=== PATIENT | female | born 1955 | race Caucasian/White ===

== ENCOUNTER 2018-05-24 07:46 | Day surgery (SDC) | payer BC ==
[2018-05-24] MEDS ORDERED: METOPROLOL SUCC25 MG PO (08:19)
--- NOTE | 2018-05-24 12:01 | NUR ---
0755: PATIENT ARRIVED TO DAY SURGERY UNIT AMBULATORY. PLACED IN ROOM 12. PATIENT CHANGED IN TO GOWN. 0810: PATIENT VERIFIED BY NAME AND . VERIFIED ALLERGIES AND PROCEDURE WITH PATIENT. VS CHECKED. 0915: PROCEDURE COMPLETE. VS CHECKED. PATIENT STATES SHE IS FEELING WELL. BANDAID ON RIGHT ANTERIOR NECK CDI. PATIENT DISCHARGED HOME AMBULATORY.
--- NOTE | 2018-05-25 11:12 | OR ---
[facility] [address], [place] [address] Signed DATE OF OPERATION: 05/24/2018 SURGEON: Amanda Barakat MD PREOPERATIVE DIAGNOSIS: Right thyroid nodule x2 and isthmus nodule x1. POSTOPERATIVE [id number]: Right thyroid nodule x2 and isthmus nodule x1. PROCEDURE: 1. Ultrasound of neck. 2. Ultrasound guided fine-needle aspiration biopsy x3. ANESTHESIA: Local 1% lidocaine 2 mL. INDICATION: This 62-year-old white woman is a patient of Dr. Dustin Painting. She underwent thyroid ultrasound in 2002, at which time nodules were noted, but there was no followup since that time. She has had no symptoms related to her thyroid. Evaluation by Dr. Painting, her new primary provider noted the lack of followup regarding her thyroid nodules and she underwent a thyroid ultrasound on April 18, 2018. This showed enlargement of the nodules and more nodules than previously. Currently, a right medial lobe 23 mm nodule was noted and an 18 mm lateral right thyroid lobe nodule was noted. A 12 mm nodule is noted at the isthmus and a small 4 mm superior pole left-sided nodule. She has no symptoms of hypo or hyperthyroidism. She has no exposure to radiation therapy in the past. No family history of thyroid cancer, though a family member did have an enlarged thyroid for which thyroidectomy was undertaken. She says. I have recommended an ultrasound-guided fine-needle aspiration biopsy of the thyroid nodules that are greater than a centimeter in size. The risks of bleeding, infection, and other unforeseen complications including suboptimal sampling was all reviewed with the patient. She understands and wished to proceed. FINDINGS: Ultrasonographic evaluation confirmed the thyroid nodules on the right side as well as the isthmus nodule. Direct visualization with aspiration was undertaken of the three nodules. Electronically Signed By: AMANDA BARAKAT MD 05/25/18 1112 PATIENT NAME: BAN VERAS OPERATIVE REPORT DATE OF : 59 REPORT #: [id number] PHYSICIAN: AMANDA BARAKAT MD PCP: DUSTIN PAINTING MD REPORT IS CONFIDENTIAL AND NOT TO BE RELEASED WITHOUT AUTHORIZATION [facility] [address], [place] [address] Signed DESCRIPTION OF PROCEDURE: The patient was in the day surgery procedure room and placed in a supine position with neck extension using pillows for support. Interrogation of the neck was undertaken with SonoSite linear probe confirming the anatomy as expected. The right side showed a rather large medial nodule and a smaller lateral nodule and an isthmus nodule, it appeared to have some calcifications. The left lobe was normal. I did not visualize the upper pole small nodule. The neck was prepared with a chlorhexidine solution and sterile technique, then employed with the ultrasound probe in a sterile cover. Re-localization of the offending right-sided nodules was noted and a small amount of 1% lidocaine was injected over the midportion of the probe itself. Under direct visualization using a 22-gauge needle with a control syringe interrogation of the largest nodule was undertaken with multiple passes through it. Photographs were taken. The material was offloaded into appropriate solution. Using a separate needle and syringe the isthmus nodule was then biopsied at this time using a lateral approach, so as to assure contact with the lesion. This was offloaded and then additional inspection of the right lobe showing the more lateral nodule was then undertaken and biopsies taken of that directly as well. In total, three nodules were aspirated. Re-examination showed no sign of bleeding, hematoma, or other problem. She tolerated the procedure well. A Band-Aid was applied. Amanda Barakat MD /KATARZYNAL /[id number] cc: Dustin Painting MD Copies: ~ Electronically Signed By: AMANDA BARAKAT MD 05/25/18 1112 PATIENT NAME: BAN VERAS OPERATIVE REPORT DATE OF : 59 REPORT #: [id number] PHYSICIAN: AMANDA BARAKAT MD PCP: DUSTIN PAINTING MD REPORT IS CONFIDENTIAL AND NOT TO BE RELEASED WITHOUT AUTHORIZATION
== END 2018-05-24 18:00 | disposition home or self-care (01) ==
LOC: OPS 07:46 → DS 07:46 → OPS 08:30 → DS 08:30 → OPS 18:00
PROC: BG44ZZZ Ultrasonography of Thyroid Gland (ICD-10-PCS; principal; 2018-05-24)
PROC: 0GBH3ZX Excision of Right Thyroid Gland Lobe, Percutaneous Approach, Diagnostic (ICD-10-PCS; 2018-05-24)
DX: E04.2 Nontoxic multinodular goiter (principal); I10 Essential (primary) hypertension; K21.9 Gastro-esophageal reflux disease without esophagitis; R00.8 Other abnormalities of heart beat; Z88.0 Allergy status to penicillin

== ENCOUNTER 2021-05-26 12:30 | Day surgery (SDC) | payer BC ==
[~2021-05-26] VITALS: Ht 165.1 cm; Wt 50.5 kg
[~2021-05-26 12:30] MED LIST: IBUPROFEN600 MG PO; METOPROLOL SUCC25 MG PO; TYLENOL EXTRA500 MG PO
--- NOTE | 2021-05-26 15:10 | NUR ---
05/26/21 1510 Esperanza Manzo 1506- PT ARRIVES TO PACU AROUSABLE TO STIMULI. FALLS TO SLEEP WHEN NOT BEING TALKED TO. RESP EVEN AND UNLABORED. OXYGEN SAT HIGH 90'S TO 100% ON 2L VIA NC.
--- NOTE | 2021-05-27 12:52 | PATH ---
[facility] [address], [place] [address] Signed SPECIMEN(S): A LOW RECTAL POLYP SPECIMEN SOURCE: A. LOW RECTAL POLYP CLINICAL HISTORY: Colonoscopy. Pre: Surveillance colonoscopy. Post: Polyp x 1, diverticulosis. FINAL PATHOLOGIC DIAGNOSIS: Low rectum, polyp, polypectomy: - Hyperplastic polyp. - Negative for dysplasia or malignancy. NAL:cml:C2NR MICROSCOPIC EXAMINATION: Histologic sections of all submitted blocks are examined by light microscopy. These findings, together with the gross examination, support the pathologic diagnosis. GROSS DESCRIPTION: The specimen, labeled "VR, 1," and designated on the requisition "low rectum polypectomy," is received in formalin and consists of one fragment of pink-palomares tissue (0.2 cm in greatest dimension). The specimen is submitted entirely in cassette (A1). AC (under the direct supervision of a pathologist) The Gross Description was prepared using a voice recognition system. The report was reviewed for accuracy; however, sound-alike word errors, addition and/or deletions may occur. If there is any question about this report, please contact Client Services. PERFORMING LABORATORY: The technical component was performed by [employer], [address] [place] [id number] (CLIA# [id number]). [facility], [address] [place] [id number] (CLIA# [id number]). Diagnostician: Jeniffer Jackson MD Pathologist Electronically Signed 05/27/2021 PATIENT NAME: BAN VERAS PATHOLOGY DATE OF : 59 REPORT #: [id number] PHYSICIAN: ALEJANDRINA PATHOLOGY PCP: DUSTIN MORROW MD REPORT IS CONFIDENTIAL AND NOT TO BE RELEASED WITHOUT AUTHORIZATION [address] [address] Signed Copies: ~ PATIENT NAME: BAN VERAS PATHOLOGY DATE OF : 59 REPORT #: [id number] PHYSICIAN: ALEJANDRINA PATHOLOGY PCP: DUSTIN MORROW MD REPORT IS CONFIDENTIAL AND NOT TO BE RELEASED WITHOUT AUTHORIZATION
--- NOTE | 2021-06-04 12:26 | OR ---
[facility] [address], [place] [address] Signed DATE OF OPERATION: 05/26/2021 SURGEON: Amanda Barakat MD PREOPERATIVE DIAGNOSIS: History of polypectomy in 2013 (Dr. Reynolds in [place]). POSTOPERATIVE DIAGNOSES: 1. Small polyp of the lower rectum (excised). 2. Minimal diverticular changes. PROCEDURE: Total colonoscopy to cecum with cold morcellation polypectomy x1, rectal polyp. ANESTHESIA: Intravenous sedation, fentanyl 100 mcg and Versed 8 mg. INDICATION: This 65-year-old white woman, who is a patient of Dr. Dustin Painting, and underwent colonoscopy in 2013, in [place] by Dr. Reynolds. She has said to have had excision of at least one polyp. She has no symptoms currently of bleeding, diarrhea, or constipation and no family history of colon cancer that she is aware of. She is here for colonoscopy. She understands the risks of bleeding, infection, and perforation. FINDINGS: The prep was excellent. Complete colonoscopy was undertaken of the cecum without question. She had minimal diverticular changes of the left colon. A very small polyp of lower rectum was noted, it was excised with cold morcellation technique. DESCRIPTION OF PROCEDURE: The patient was brought to the endoscopy suite and placed in the lateral decubitus position given intravenous sedation to the point of slurred speech and nystagmus. Digital rectal examination was normal. An Olympus video colonoscope was passed in the rectum and manipulated throughout the colon ultimately intubating the cecum itself. The ileocecal valve and appendiceal orifice were normal. The scope was withdrawn from that point. Examination throughout showed no sign of abnormality other than a few scattered diverticula of the left colon and sigmoid. Retroflexed view of the rectum showed a very small polyp of the lower rectum. This was excised with cold morcellation technique. The scope was straightened, Electronically Signed By: MAANDA BARAKAT MD 06/04/21 6026 PATIENT NAME: BAN VERAS OPERATIVE REPORT DATE OF : 59 REPORT #: [id number] PHYSICIAN: AMANDA BARAKAT MD PCP: DUSTIN PAINTING MD REPORT IS CONFIDENTIAL AND NOT TO BE RELEASED WITHOUT AUTHORIZATION [facility] [address] [facility] [place], [place] [address] Signed withdrawn, and removed. The patient was taken to the recovery room in good condition. CONCLUDING DIAGNOSIS: Small polyp, lower rectum. PLAN: Recommend repeat colonoscopy in 5 to 7 years or sooner if clinically indicated. Recommend high-fiber diet as well. MD MARY Orellana/MODL /[id number] cc: Dustin Painting MD Copies: ~ Electronically Signed By: AMANDA BARAKAT MD 06/04/21 1226 PATIENT NAME: BAN VERAS OPERATIVE REPORT DATE OF : 59 REPORT #: [id number] PHYSICIAN: AMANDA BARAKAT MD PCP: DUSTIN PAINTING MD REPORT IS CONFIDENTIAL AND NOT TO BE RELEASED WITHOUT AUTHORIZATION
== END 2021-05-26 15:41 | disposition home or self-care (01) ==
LOC: OPS 12:30 → DS 12:30 → OPS 14:00 → DS 14:00 → OPS 15:41
PROVIDERS: ATTEND Surgery
PROC: 0DBP8ZZ Excision of Rectum, Via Natural or Artificial Opening Endoscopic (ICD-10-PCS; principal; 2021-05-26 14:00)
DX: Z12.11 Encounter for screening for malignant neoplasm of colon (principal); K62.1 Rectal polyp; K57.30 Diverticulosis of large intestine without perforation or abscess without bleeding; R00.8 Other abnormalities of heart beat
CPT/HCPCS: 99153; G0500; J2250; J3010